=== PATIENT | female | born 1955 | race Caucasian/White ===

== ENCOUNTER → 2016-08-10 | Outpatient (CLI) | payer BC | LOC: FIMAGING 13:00 | PROVIDERS: ATTEND Obstetrics & Gynecology | DX: Z12.31 Encounter for screening mammogram for malignant neoplasm of breast (principal) | CPT/HCPCS: G0202 ==

== ENCOUNTER → 2017-09-03 | Outpatient (CLI) | payer BC | LOC: FIMAGING 14:01 | PROVIDERS: ATTEND Family Medicine | DX: Z12.31 Encounter for screening mammogram for malignant neoplasm of breast (principal) ==

== ENCOUNTER 2018-03-02 09:38 | Emergency (ER) | payer BC ==
[2018-03-02 09:49] VITALS: BP 137/100
[2018-03-02] MEDS ORDERED: FLUORESCEIN SODIUM 1 MG STRIP OP ONE (10:07)
[2018-03-02] MEDS ORDERED: PROPARACAINE 0.5% 15 ML OPHT DROP ONE (10:07)
--- NOTE | 2018-03-02 10:27 | EDPHY ---
H & P Time Seen by Provider: 03/02/18 10:11 HPI/ROS: CHIEF COMPLAINT: Left eye floater HISTORY OF PRESENT ILLNESS: 62-year-old female drove to the ER concerns over possible retinal detachment. History of migraine headache, history of bilaterally sick with left eye revision May [address] Marianela garcia in [place], noticed yesterday evening a black sliver in her left eye visual field approximately 9:00 to 12:00 position. No pain. No headache. Does not feel like her migraine PHYSICAL EXAM (Prior to examination, patient consented to physical exam, hands were washed and my usual and customary physical exam procedures followed) 1) GENERAL: Well-developed, well-nourished, alert and oriented. Appears to be in no acute distress. 2) HEAD: Normocephalic 3) ENT: No rhinorrhea 4) LUNGS: Breathing comfortably. [5) OCULAR EXAM: Visual Acuity: Right eye 20/20, left eye 20/30, bilateral 20/20. Pupils:equal round and reactive to light EOMI Lids: no edema or swelling, upper and lower lids were everted and no foreign bodies were visualized, no areas of increased fluorescein uptake. Skin: no proptosis, no periorbital erythema or swelling, no vesicles, no pain with extraocular movements. Funduscopic examination grossly unremarkable Conjunctivae: not injected, no discharge, negative [place] test. Anterior chamber:normal, no hyphema or hypopyon. tonometryn 23 mm mercury Smoking Status: Never smoked Constitutional: Initial Vital Signs Temperature (C) 36.8 C 03/02/18 09:46 Heart Rate 76 03/02/18 09:46 Respiratory Rate 18 03/02/18 09:46 Blood Pressure 137/100 H 03/02/18 09:46 O2 Sat (%) 97 03/02/18 09:46 O2 Delivery Mode Room Air Allergies/Adverse Reactions: No Known Allergies Allergy (Unverified 03/02/18 09:44) Home Medications: Medication Instructions Recorded Acyclovir 03/02/18 Finacea 03/02/18 Lisinopril 03/02/18 SUMAtriptan 03/02/18 Vitamins And Supplements 03/02/18 MDM/Departure - [facility] ED Course/Re-evaluation: 10:30 a.m.: Consultation with on-call ophthalmology Dr. Nitza Aaron who has agreed to see the patient in her office and [place] this morning. Patient will drive directly to her office. Patient feels safe driving. Notes no visual acuity changes. Care of patient under supervision of secondary supervising physician Dr Alvarez with whom I discussed case - Depart Disposition: Home, Routine, Self-Care Clinical Impression: Vitreous floaters of left eye Condition: Good Instructions: Visual Floaters (ED) Referrals: Nitza Aaron MD [Medical Doctor] - 03/02/18 11:00 am (Go directly to Dr. Aaron's office today in [place], [address] [place] [address])
== END 2018-03-02 10:47 | disposition home or self-care (01) ==
DX: H43.392 Other vitreous opacities, left eye (principal)

== ENCOUNTER → 2018-03-19 | Outpatient (CLI) | payer BC | LOC: FIMAGING 15:26 | PROVIDERS: ATTEND Orthopaedic Surgery Hand Surgery | DX: S42.142A Displaced fracture of glenoid cavity of scapula, left shoulder, initial encounter for closed fracture (principal); I77.810 Thoracic aortic ectasia ==